=== PATIENT | male | born 1980 | race Caucasian/White ===

== ENCOUNTER 2018-11-04 16:36 | Emergency (ER) | payer BC ==
[2018-11-04] MEDS ORDERED: Ibuprofen TAB* 600 MG PO ONE (18:14)
[2018-11-04 18:18] VITALS: BP 140/70
[2018-11-04 18:33] LABS: Influenza A Molecular POSITIVE (Negative)
--- NOTE | 2018-11-04 18:39 | UC ---
Respiratory Complaint HPI - HPI Summary HPI Summary: 38 yo male with < 24 hours of f/c, runny nose, cough. TATE and myalgias No CP or SOB exposed to flu at work - History of Current Complaint Chief Complaint: UCRespiratory Stated Complaint: SINUS Time Seen by Provider: 11/04/18 18:24 Hx Obtained From: Patient Onset/Duration: Sudden Onset Timing: Constant Severity Initially: Mild Severity Currently: Moderate Pain Intensity: 5 Pain Scale Used: 0-10 Numeric Character: Cough: Nonproductive Aggravating Factors: Nothing Alleviating Factors: Nothing Associated Signs And Symptoms: Positive: Fever, Chills, URI, Nasal Congestion, Hoarseness, Sinus Discomfort - Allergies/Home Medications Allergies/Adverse Reactions: Allergies Allergy/AdvReac Type Severity Reaction Status Date / Time bee venom protein (honey bee) Allergy Anaphylatic Verified 11/04/18 18:00 Shock seasonal Allergy Congestion Uncoded 11/04/18 18:07 Home Medications: Home Medications Anti Gerd Med 75 mg PO DAILY PRN 11/04/18 [History] PMH/Surg Hx/FS Hx/Imm Hx Previously Healthy: Yes - Surgical History Surgical History: Yes Surgery Procedure, Year, and Place: tonsillectomy - Family History Known Family History: Positive: Hypertension, Other - positive FMH fo rcontusion - Social History Alcohol Use: Occasionally Substance Use Type: None Smoking Status (MU): Heavy Every Day Tobacco Smoker Type: Cigarettes Amount Used/How Often: 1/2 -1 ppd Length of Time of Smoking/Using Tobacco: started at age 18 Have You Smoked in the Last Year: Yes Review of Systems All Other Systems Reviewed And Are Negative: Yes Constitutional: Positive: Fever, Chills, Fatigue Skin: Positive: Negative Eyes: Positive: Negative ENT: Positive: Nasal Discharge, Sinus Congestion, Sinus Pain/Tenderness Respiratory: Positive: Cough Cardiovascular: Positive: Negative Gastrointestinal: Positive: Negative Genitourinary: Positive: Negative Motor: Positive: Negative Neurovascular: Positive: Negative Musculoskeletal: Positive: Myalgia Neurological: Positive: Headache Psychological: Positive: Negative Physical Exam Triage Information Reviewed: Yes Appearance: Well-Appearing, No Pain Distress, Well-Nourished Vital Signs: Initial Vital Signs Temp 103.9 F 11/04/18 18:10 Pulse 127 11/04/18 18:10 Resp 24 11/04/18 18:10 BP 140/70 11/04/18 18:10 Pulse Ox 96 11/04/18 18:10 Vital Signs Reviewed: Yes Eyes: Positive: Conjunctiva Clear ENT: Positive: Hearing grossly normal, Nasal congestion, Nasal drainage, Sinus tenderness, Uvula midline. Negative: Tonsillar swelling, Tonsillar exudate, Trismus, Muffled voice, Hoarse voice Neck: Positive: Supple, Nontender, No Lymphadenopathy Respiratory: Positive: Lungs clear, Normal breath sounds, No respiratory distress, No accessory muscle use, Respiratory distress Cardiovascular: Positive: RRR, No Murmur Musculoskeletal: Positive: ROM Intact, No Edema Neurological: Positive: Alert Psychological Exam: Normal Skin Exam: Normal UC Diagnostic Evaluation - Laboratory O2 Sat by Pulse Oximetry: 96 - normal/not hypoxic Diagnostic Studies Comment: influenza A (+) Respiratory Course/Dx - Differential Dx/Diagnosis Provider Diagnosis: Influenza A Discharge - Sign-Out/Discharge Documenting (check all that apply): Patient Departure All imaging exams completed and their final reports reviewed: No Studies - Discharge Plan Condition: Stable Disposition: HOME Prescriptions: Oseltamivir CAP* [Tamiflu CAP*] 75 mg PO BID #10 cap Patient Education Materials: Influenza (ED) Forms: *Work Release Referrals: No Primary Care Phys,NOPCP [Primary Care Provider] - Additional Instructions: rest fluids tylenol or advil recheck in 4-5 days if still febrile - Billing Disposition and Condition Condition: STABLE Disposition: Home
== END 2018-11-04 18:44 | disposition home or self-care (01) ==
LOC: UCCORT 16:36
DX: J10.1 Influenza due to other identified influenza virus with other respiratory manifestations (principal); F17.210 Nicotine dependence, cigarettes, uncomplicated; Z91.030 Bee allergy status; Z91.09 Other allergy status, other than to drugs and biological substances
CPT/HCPCS: 99212; A9270-GY; G0463

== ENCOUNTER 2019-04-21 09:40 | Emergency (ER) | payer BC ==
[2019-04-21 11:15] VITALS: BP 101/59
--- NOTE | 2019-04-21 11:29 | UC ---
Respiratory Complaint HPI - HPI Summary HPI Summary: 38 year old male with URI complaint . c/o head and chest congestion,sore throat , fever, productive cough with clear secretions, diarrhea, slight dizziness when doing anything. States symptoms started Thursday.Today, only 1 time with diarrhea. Thursday was every hour, but did take immodium with relief. (+) fatigue and cough. some intermittent SOB. Also with worse allergy. he uses his allergy pills. no nasal sprays being used. ibuprofen helps minimally. (+) nocturnal cough and exertion worsens symptoms. no recent antibiotics, no travel , no fam h/o clotting disorder. Has had pneumonia in the past and still smokes but less at this time with the sickness. no cp or palpitations [ End ] - History of Current Complaint Chief Complaint: UCRespiratory Stated Complaint: COUGH,CONGESTION,FEVER Time Seen by Provider: 04/21/19 11:28 Hx Obtained From: Patient Onset/Duration: Gradual Onset Pain Intensity: 6 Character: Cough: Nonproductive - Allergies/Home Medications Allergies/Adverse Reactions: Allergies Allergy/AdvReac Type Severity Reaction Status Date / Time bee venom protein (honey bee) Allergy Anaphylatic Verified 04/21/19 11:07 Shock seasonal Allergy Congestion Uncoded 04/21/19 11:07 Home Medications: Home Medications Dm/Pseudoephed/Acetaminophen [Day-Time Multi-Symptom Co] 2 cap PO BID PRN [History Confirmed 04/21/19] Ibuprofen TAB* [Advil TAB*] 400 mg PO Q6H PRN 04/21/19 [History Confirmed ] PMH/Surg Hx/FS Hx/Imm Hx Previously Healthy: Yes Respiratory History: Pneumonia - Surgical History Surgical History: Yes Surgery Procedure, Year, and Place: tonsillectomy - Family History Known Family History: Positive: Hypertension, Other - positive FMH fo rcontusion - Social History Occupation: Employed Full-time Lives: With Family Alcohol Use: Occasionally Substance Use Type: None Smoking Status (MU): Heavy Every Day Tobacco Smoker Type: Cigarettes Amount Used/How Often: 1/2 -1 ppd Length of Time of Smoking/Using Tobacco: started at age 18 Have You Smoked in the Last Year: Yes Review of Systems All Other Systems Reviewed And Are Negative: Yes Constitutional: Positive: Fever, Chills, Fatigue ENT: Positive: Sore Throat, Ear Ache, Nasal Discharge, Sinus Congestion, Sinus Pain/Tenderness Respiratory: Positive: Shortness Of Breath, Cough Gastrointestinal: Positive: Diarrhea Musculoskeletal: Positive: Myalgia Is Patient Immunocompromised?: No Physical Exam Triage Information Reviewed: Yes Appearance: Well-Appearing - but slightly diaphoretic, No Pain Distress, Well- Nourished Vital Signs: Initial Vital Signs Temp 99.5 F 04/21/19 11:09 Pulse 88 04/21/19 11:09 Resp 20 04/21/19 11:09 BP 101/59 04/21/19 11:09 Pulse Ox 98 04/21/19 11:09 Vital Signs Reviewed: Yes Eye Exam: Normal ENT Exam: Normal ENT: Positive: Nasal congestion, Nasal drainage, TM dull. Negative: TM bulging , TM red Dental Exam: Normal Neck exam: Normal Neck: Positive: 1 Respiratory Exam: Normal Respiratory: Positive: Chest non-tender, No respiratory distress, No accessory muscle use, Decreased breath sounds - RLL Cardiovascular Exam: Normal Abdominal Exam: Normal Musculoskeletal Exam: Normal Neurological Exam: Normal Psychological Exam: Normal Skin Exam: Normal Respiratory Course/Dx - Course Course Of Treatment: (+) pneumonia -- stop smoking, start abx, discussed SE with patient and he is aware and agree to plan, advised to get f/u chest xray in 4-6 weeks to ensure resolution and no nodules / cancer. he is aware and agreeable to this as well. he could always return here if no PCP - Differential Dx/Diagnosis Differential Diagnosis/HQI/PQRI: Bronchitis, Lower Resp Infection, Sinusitis Provider Diagnosis: Right lower lobe pneumonia Discharge - Sign-Out/Discharge Documenting (check all that apply): Patient Departure All imaging exams completed and their final reports reviewed: Yes - Discharge Plan Condition: Good Disposition: HOME Prescriptions: levoFLOXacin [Levofloxacin] 750 mg PO DAILY #7 tablet Patient Education Materials: Bacterial Pneumonia (ED) Forms: *Work Release Referrals: No Primary Care Phys,NOPCP [Primary Care Provider] - Additional Instructions: Please follow up with a PCP in 4-6 weeks for follow up chest xray to make sure your right lower lobe pneumonia is resolved. Good luck quitting smoking ! - Billing Disposition and Condition Condition: GOOD Disposition: Home
--- NOTE | 2019-04-22 10:49 | UC ---
- Progress Note Progress Note: Received call from patient that he developed a rash after taking one dose of levofoxacin. Denies difficulty breathing nor difficulty swallowing. Instructed to discontinue levofloxacin. Prescribed Doxycycline 100mg bid instead for 10 days. Will call with any further concerns. Course/Dx - Diagnoses Provider Diagnoses: Right lower lobe pneumonia Discharge - Sign-Out/Discharge Documenting (check all that apply): Patient Departure All imaging exams completed and their final reports reviewed: Yes - Discharge Plan Condition: Good Disposition: HOME Prescriptions: Doxycycline Hyclate 100 mg PO BID 10 Days #20 tablet levoFLOXacin [Levofloxacin] 750 mg PO DAILY #7 tablet Patient Education Materials: Bacterial Pneumonia (ED) Forms: *Work Release Referrals: No Primary Care Phys,NOPCP [Primary Care Provider] - Additional Instructions: Please follow up with a PCP in 4-6 weeks for follow up chest xray to make sure your right lower lobe pneumonia is resolved. Good luck quitting smoking ! - Billing Disposition and Condition Condition: GOOD Disposition: Home
== END 2019-04-21 12:34 | disposition home or self-care (01) ==
LOC: UCCORT 09:40
DX: J18.9 Pneumonia, unspecified organism (principal); F17.210 Nicotine dependence, cigarettes, uncomplicated; R19.7 Diarrhea, unspecified
CPT/HCPCS: 71046; 99212; G0463